=== PATIENT | female | born 1985 | race Caucasian/White ===

== ENCOUNTER 2024-04-07 07:43 | Day surgery (SDC) | payer BC, OTHER ==
[~2024-04-07 07:43] MED LIST: Dexamethasone 4 MG/ML 5 ML MDV ONE; Ketorolac 30 MG/ML SDV ONE; Lidocaine 2% 5 ML SDV ONE; Metoclopramide 10 MG/2 ML SDV ONE; Ondansetron 4 MG/2 ML SDV ONE; Propofol 200 MG/20 ML SDV ONE; Rocuronium 50 MG/5 ML Vial ONE; Sodium Chloride 0.9% 10 ML Syringe FLUSH PRN; Sodium Chloride 0.9% 10 ML Syringe FLUSH SCH; ceFAZolin 2 GM Vial ONE; dexmedeTOMIDine HCl 200 MCG/2 ML SDV ONE; fentaNYL 100 MCG/2 ML SDV ONE
[2024-04-07] MEDS ORDERED: Neostigmine Methylsulfate 10 MG/10 ML MDV ONE ×2 (07:57→07:58)
[2024-04-07] MEDS: Lactated Ringers 1,000 ML IV SCH (08:00)
[2024-04-07] MEDS ORDERED: ePHEDrine 50 MG/ML SDV ONE (08:14)
[2024-04-07 08:15] LABS: BASOPHILS ABSOLUTE AUTO 0.1 K/mm3 (0.0-0.2); BASOPHILS PERCENT AUTO 0.7 % (0.0-1.0); EOSINOPHILS ABSOLUTE AUTO 0.1 K/mm3 (0.0-0.4); EOSINOPHILS PERCENT AUTO 1.3 % (0.0-6.0); HEMATOCRIT 40.5 % (37.0-47.0); HEMOGLOBIN 12.5 gm/dl (12.0-16.0); IMMATURE GRAN ABSOLUTE AUTO 0.01 K/mm3 (0.00-0.05); IMMATURE GRAN PERCENT AUTO 0.1 % (0.0-0.4); LYMPHOCYTES PERCENT AUTO 27.7 % (24.0-44.0); MEAN CORPUSCULAR HGB CONC 30.9 g/dl (32.0-36.0); MEAN CORPUSCULAR VOLUME 80.8 fl (83.0-99.0); MEAN PLATELET VOLUME 10.2 fl (9.4-12.3); MONOCYTES ABSOLUTE AUTO 0.6 K/mm3 (0.0-0.8); NEUTROPHILS ABSOLUTE AUTO 4.3 K/mm3 (1.8-7.7); NEUTROPHILS PERCENT AUTO 61.2 % (41.0-71.0); PLATELET COUNT,PLT 267 K/mm3 (150-400); RED BLOOD CELL COUNT 5.01 M/mm3 (4.10-5.30)
[2024-04-07] MEDS: Acetaminophen 325 MG Tab PO SCH (08:19)
[2024-04-07] MEDS ORDERED: Bupivacaine 0.25% 10 ML SDV ONE (08:21)
[2024-04-07] MEDS: Famotidine 20 MG/2 ML SDV IVPUSH SCH (08:21)
[2024-04-07 08:26] LABS: ANION GAP 12.7 (5-15); BLOOD UREA NITROGEN,BUN 12 mg/dL (7-18); CALCIUM 8.8 mg/dL (8.5-10.1); CARBON DIOXIDE,CO2 25 mEq/L (21-32); CHLORIDE,CL 106 mEq/L (98-107); CREATININE 0.8 mg/dL (0.55-1.02); ESTIMATED GFR 96 mL/min (>60); GLUCOSE RANDOM 82 mg/dL (70-99); POTASSIUM,K 3.7 mEq/L (3.5-5.1); SODIUM,NA 140 mEq/L (136-145)
[2024-04-07] MEDS ORDERED: Rocuronium 50 MG/5 ML Vial ONE (08:46)
[2024-04-07 08:58] LABS: SLIDE REVIEW ABNORMAL SMEAR
[2024-04-07] MEDS: Bupivacaine 0.25% 10 ML SDV ONE (09:11)
[2024-04-07] MEDS: EPINEPHrine 1 MG/ML SDV ONE (09:11)
[2024-04-07] MEDS: Lidocaine 1% with EPINEPHrine 1:100,000 20 ML MDV ONE (09:11)
[2024-04-07] MEDS ORDERED: Ondansetron 4 MG/2 ML SDV IVPUSH PRN (09:21)
[2024-04-07] MEDS ORDERED: HYDROmorphone 0.5 MG/0.5 ML Syringe IVPUSH PRN (09:21)
[2024-04-07] MEDS: fentaNYL 100 MCG/2 ML SDV IVPUSH PRN (10:32)
== END 2024-04-07 12:35 | disposition home or self-care (01) ==
LOC: JD.SDS 07:43
PROVIDERS: ATTEND Obstetrics & Gynecology
DX: D25.0 Submucous leiomyoma of uterus (principal); D25.1 Intramural leiomyoma of uterus; N83.8 Other noninflammatory disorders of ovary, fallopian tube and broad ligament; N72 Inflammatory disease of cervix uteri; D50.9 Iron deficiency anemia, unspecified
CPT/HCPCS: 36415; 58552; 80048; 81025; 85025; 86850; 86900; 86901; A9270; J0171; J0665; J0690; J1100; J1885; J2405; J2704; J2710; J2765; J3010; J3490; J7120; 00944